=== PATIENT | male | born 1960 | race Caucasian/White ===

== ENCOUNTER 2017-03-04 06:49 | Day surgery (SDC) | payer MEDICAID ==
[~2017-03-04] VITALS: Ht 175.3 cm; Wt 107.7 kg
[2017-03-04 07:27] LABS: BASOPHILS 0.8 % (0-2); EOSINOPHILS 5.6 % (0-7); HEMATOCRIT 46.3 % (42.0-54.0); HEMOGLOBIN 16.1 g/dL (13.5-17.5); IMMATURE GRANULOCYTES 0.3 % (0-5); LYMPHOCYTES 29.7 % (15-50); MCH 33.1 pg (26.0-34.0); MCHC 34.8 g/dL (31.0-37.0); MCV 95.1 fL (80.0-100.0); MEAN PLATELET VOLUME 10.2 fL (7.4-10.4); MONOCYTES 7.8 % (2-11); NEUTROPHILS 55.8 % (40-80); PLATELET COUNT 226 10x3/uL (130-400); RBC 4.87 10x6/uL (4.20-6.10); RDW 13.1 % (11.5-14.5); WBC 7.3 10x3/uL (4.8-10.8)
[2017-03-04 07:43] LABS: CALCIUM 9.1 mg/dL (8.5-10.1); CARBON DIOXIDE 20.8 mmol/L (21.0-32.0); CREATININE - SERUM 1.2 mg/dL (0.6-1.3); POTASSIUM - SERUM 3.8 mmol/L (3.5-5.1)
[2017-03-04 09:31] VITALS: BP 114/78; Ht 175.3 cm; Wt 107.7 kg
[2017-03-04] MEDS ORDERED: GLUCOPHAGE500 MG PO (09:43)
[2017-03-04] MEDS ORDERED: NORVASC10 MG PO (09:44)
[2017-03-04] MEDS ORDERED: PRINIVIL10 MG PO (09:45)
[2017-03-04] MEDS ORDERED: KLONOPIN1 MG PO (09:46)
[2017-03-04] MEDS ORDERED: NIASPAN1000 MG PO (09:48)
[2017-03-04] MEDS ORDERED: FENOGLIDE40 MG PO (09:49)
--- NOTE | 2017-03-04 11:26 | NUR ---
1110-RECD TO ROOM FROM GI LAB. ALERT/ORIENTED. RESP WITH EASE. DENIES PAIN. UP TO BATHROOM. VOIDED AND PASSING GAS.
--- NOTE | 2017-03-04 11:55 | NUR ---
DISCHARGED HOME VIA WHEELCHAIR TO PRIVATE VEHICLE WITH SPOUSE
--- NOTE | 2017-03-05 08:15 | OP ---
PATIENT NAME: MOLINA ELLSWORTH MEDICAL RECORD: [id number] :60 LOCATION:D.OPS ADMISSION DATE: SURGEON: LUIS FERNANDO ASCENCIO MD DATE OF OPERATION: 03/04/2017 SURGEON: Luis Fernando Ascencio MD PREOPERATIVE DIAGNOSES: 1. Screening for malignant neoplasm of colon. 2. Type 2 diabetes. 3 Hyperlipidemia. 4. Reflux. 5. Nicotine dependence. POSTOPERATIVE DIAGNOSES: 1. Screening for malignant neoplasm of colon. 2. Type 2 diabetes. 3 Hyperlipidemia. 4. Reflux. 5. Nicotine dependence. PROCEDURE PERFORMED: Screening colonoscopy. ANESTHESIA: Total intravenous anesthesia. Case was contaminated. ESTIMATED BLOOD LOSS: Minimal. SPECIMENS: None. DESCRIPTION OF PROCEDURE: After consent was obtained, the patient was taken to the endoscopy suite at which time, a timeout was taken to confirm the correct patient and procedure, total intravenous anesthesia was provided. Next, a digital rectal exam was performed. Prior to that, the patient was placed in left lateral decubitus position. After the digital rectal exam, the scope was lubricated and was placed into the rectum. The rectum and colon were insufflated. The scope was advanced to the ileocecal valve. The appendiceal orifice was identified. The valve and orifice were pictured. Approximately 10 minutes was spent of withdrawing the scope. During that 10 minutes, the entirety of the colon was inspected. There was no evidence of diverticular disease. There was no evidence of bleeding. There were no masses identified. There were no polyps identified. The scope was retroflexed. There was some small internal hemorrhoids noted. The scope was then advanced back into the sigmoid and descending colon. The colon was desufflated as the scope was withdrawn. At the end of the case, all needle and instrument counts were correct. No complications occurred. The patient to have a repeat colonoscopy due to family risk factors and smoking in 5 years. TRANSINT:[id number] Voice Confirmation ID: [id number] DOCUMENT ID: [id number] OPERATIVE REPORT [id number] MOLINA ELLSWORTH LUIS FERNANDO MARC MD at 0815 CC: [id number] DICTATION DATE: 03/04/17 1101 LAUNDRY TECH: 03/04/[address] [facility] 03/04/17 [place] [address]
== END 2017-03-04 11:55 | disposition home or self-care (01) ==
LOC: D.OPS 06:49
PROVIDERS: Anesthesiology
DX: Z12.11 Encounter for screening for malignant neoplasm of colon (principal); F17.200 Nicotine dependence, unspecified, uncomplicated; K21.9 Gastro-esophageal reflux disease without esophagitis; E11.22 Type 2 diabetes mellitus with diabetic chronic kidney disease; I12.9 Hypertensive chronic kidney disease with stage 1 through stage 4 chronic kidney disease, or unspecified chronic kidney disease; N18.3 Chronic kidney disease, stage 3 (moderate)

== ENCOUNTER 2017-03-04 16:26 | Emergency (ER) | payer MEDICAID ==
[2017-03-04 09:31] VITALS: BMI 35.0
[~2017-03-04 16:26] MED LIST: FENOGLIDE40 MG PO; GLUCOPHAGE500 MG PO; KLONOPIN1 MG PO; NIASPAN1000 MG PO; NORVASC10 MG PO; PRINIVIL10 MG PO
[2017-03-04 17:49] LABS: BASOPHILS 0.5 % (0-2); EOSINOPHILS 3.2 % (0-7); HEMATOCRIT 45.3 % (42.0-54.0); HEMOGLOBIN 15.6 g/dL (13.5-17.5); IMMATURE GRANULOCYTES 0.1 % (0-5); LYMPHOCYTES 18.6 % (15-50); MCH 32.7 pg (26.0-34.0); MCHC 34.4 g/dL (31.0-37.0); MEAN PLATELET VOLUME 10.4 fL (7.4-10.4); MONOCYTES 7.7 % (2-11); NEUTROPHILS 69.9 % (40-80); PLATELET COUNT 247 10x3/uL (130-400); RBC 4.77 10x6/uL (4.20-6.10); RDW 13.2 % (11.5-14.5)
[2017-03-04 18:02] LABS: WBC 9.6 10x3/uL (4.8-10.8)
[2017-03-04 18:27] LABS: ANION GAP 16.8 mmol/L (8-16); BILIRUBIN - TOTAL 0.4 mg/dL (0.2-1.3); CALCIUM 9.3 mg/dL (8.5-10.1); CARBON DIOXIDE 22.5 mmol/L (21.0-32.0); POTASSIUM - SERUM 4.3 mmol/L (3.5-5.1); PROTEIN - SERUM 8.1 g/dL (6.4-8.2)
[2017-03-04 18:31] LABS: CREATININE - SERUM 1.6 mg/dL (0.6-1.3)
[2017-03-04 18:55] LABS: APPEARANCE CLEAR (CLEAR); BILIRUBIN NEGATIVE (NEGATIVE); COLOR YELLOW (YELLOW); GLUCOSE NEGATIVE (NEGATIVE); KETONE NEGATIVE (NEGATIVE); LEUKOCYTE ESTERASE NEGATIVE (NEGATIVE); NITRITE NEGATIVE (NEGATIVE); PROTEIN NEGATIVE (NEGATIVE); SPECIFIC GRAVITY 1.025 (1.005-1.020); UROBILINOGEN NORMAL (NORMAL)
[2017-03-04 18:56] LABS: BACTERIA FEW /hpf (NONE SEEN); RED CELLS - URINE 0-5 /hpf (0-5); WHITE CELLS - URINE OCC /hpf (0-5)
== END 2017-03-04 21:37 | disposition home or self-care (01) ==
LOC: D.ER 16:26
PROVIDERS: Emergency Medicine
DX: G89.18 Other acute postprocedural pain (principal); R10.9 Unspecified abdominal pain; I10 Essential (primary) hypertension; E11.9 Type 2 diabetes mellitus without complications; F41.9 Anxiety disorder, unspecified; E78.1 Pure hyperglyceridemia; F17.200 Nicotine dependence, unspecified, uncomplicated

== ENCOUNTER → 2017-03-07 16:50 | Outpatient (CLI) | payer MEDICAID ==
[2017-03-04 09:31] VITALS: BMI 35.0
== END | disposition home or self-care (01) ==
LOC: D.CT 16:50
DX: M54.08 Panniculitis affecting regions of neck and back, sacral and sacrococcygeal region (principal)

== ENCOUNTER → 2018-06-26 12:56 | Outpatient (CLI) | payer MEDICAID | END | disposition home or self-care (01) | LOC: D.MRI 12:56 | DX: M76.72 Peroneal tendinitis, left leg (principal) ==

== ENCOUNTER → 2019-05-18 10:37 | Outpatient (CLI) | payer MEDICAID ==
[~2019-05-18 10:37] MED LIST changes: +COZAAR100 MG PO; +CRESTOR10 MG PO; +FLOMAX0.4 MG PO; +HYDROCODON-ACE1 EAC7 PO; +JANUVIA100 MG PO
--- NOTE | 2019-05-22 16:51 | ST ---
PATIENT:MOLINA ELLSWORTH MEDICAL RECORD: [id number] SEX: M LOCATION:D.MRI ORDER #: ADMISSION DATE: 05/18/19 AGE OF PATIENT: 59 REFERRING PHYSICIAN: INTERPRETING PHYSICIAN: GIRMA WYLIE MD DATE OF SERVICE: 05/19/2019 INDICATIONS: Angina, hypertension, hyperlipidemia, and diabetes. PROCEDURE IN DETAIL: He was exercised on a standard Lexiscan protocol with 27 mCi of sestamibi injected at peak stress, 9 mCi used previously for rest images. FINDINGS: Gated SPECT reveals preserved ejection fraction at 69% with decreased thickening and brightening throughout the inferior segments. SPECT Imaging: Cardiolite was used as myocardial perfusion agent. There is fixed perfusion defect inferiorly. This includes the basal, mid apical, and inferior segments. There is no evidence of reversible ischemia. The remaining segments with homogeneous uptake at rest and stress. OVERALL IMPRESSION: 1. This is minimally abnormal nuclear stress test with a fixed perfusion defect inferiorly. 2. No ongoing ischemia and preserved ejection fraction greater than 50%. Continue medical management of the coronary artery disease and cardiac risk factors. TRANSINT:[id number] Voice Confirmation ID: [id number] DOCUMENT ID: [id number] GIRMA WYLIE MD at 1651 CC: BARRETT BUSTOS MD [id number] DICTATION DATE: 05/19/19 1617 APPLICATION ARCHITECT MANAGER: 05/20/19 0021 DEP CLI 05/18/19 [facility] [address] [place] [address]
== END | disposition home or self-care (01) ==
LOC: D.MRI 10:37
PROVIDERS: ATTEND Clinical Nurse Specialist Family Health
DX: M54.16 Radiculopathy, lumbar region (principal)

== ENCOUNTER 2019-05-22 14:55 | Emergency (ER) | payer MEDICAID ==
[~2019-05-22] VITALS: Ht 175.3 cm; Wt 111.4 kg
[~2019-05-22 14:55] MED LIST changes: -COZAAR100 MG PO; -CRESTOR10 MG PO; -FLOMAX0.4 MG PO; -HYDROCODON-ACE1 EAC7 PO; -JANUVIA100 MG PO
[2019-05-22 15:01] VITALS: Ht 175.3 cm; Wt 111.4 kg
[2019-05-22] MEDS ORDERED: COZAAR100 MG PO (15:03)
[2019-05-22] MEDS ORDERED: JANUVIA100 MG PO (15:04)
[2019-05-22] MEDS ORDERED: CRESTOR10 MG PO (15:05)
[2019-05-22 15:31] LABS: BASOPHILS 0.3 % (0-2); EOSINOPHILS 3.2 % (0-7); HEMATOCRIT 43.3 % (42.0-54.0); HEMOGLOBIN 15.3 g/dL (13.5-17.5); IMMATURE GRANULOCYTES 0.1 % (0-5); LYMPHOCYTES 18.9 % (15-50); MCH 32.8 pg (26.0-34.0); MCHC 35.3 g/dL (31.0-37.0); MCV 92.7 fL (80.0-100.0); MEAN PLATELET VOLUME 9.7 fL (7.4-10.4); MONOCYTES 11.7 % (2-11); NEUTROPHILS 65.8 % (40-80); PLATELET COUNT 245 10x3/uL (130-400); RBC 4.67 10x6/uL (4.20-6.10); RDW 13.3 % (11.5-14.5); WBC 11.1 10x3/uL (4.8-10.8)
[2019-05-22 15:42] LABS: APPEARANCE HAZY (CLEAR); BILIRUBIN NEGATIVE (NEGATIVE); COLOR RED (YELLOW); GLUCOSE NEGATIVE (NEGATIVE); KETONE NEGATIVE (NEGATIVE); NITRITE NEGATIVE (NEGATIVE); PROTEIN TRACE mg/dL (NEGATIVE); UROBILINOGEN NORMAL (NORMAL)
[2019-05-22 15:43] LABS: RED CELLS - URINE >50 /hpf (0-5); WHITE CELLS - URINE OCC /hpf (0-5)
[2019-05-22 15:44] LABS: BACTERIA FEW /hpf (NONE SEEN)
[2019-05-22 15:47] LABS: ALBUMIN 3.9 g/dL (3.4-5.0); ALKALINE PHOSPHATASE 56 U/L (46-116); ALT (SGPT) 34 U/L (10-68); BILIRUBIN - TOTAL 0.31 mg/dL (0.2-1.3); CALC OSMOLALITY 276 mosm/kg (275-300); CALCIUM 9.2 mg/dL (8.5-10.1); CARBON DIOXIDE 23.3 mmol/L (21.0-32.0); CHLORIDE - SERUM 105 mmol/L (98-107); CREATININE - SERUM 1.5 mg/dL (0.6-1.3); GLUCOSE 116 mg/dL (74-106); POTASSIUM - SERUM 4.4 mmol/L (3.5-5.1); PROTEIN - SERUM 8.5 g/dL (6.4-8.2); SODIUM 137 mmol/L (136-145); UREA NITROGEN 19 mg/dL (7-18); eGFR NON AFRICAN AMERICAN 51 mL/min (90-120)
[2019-05-22 15:50] LABS: AMYLASE - SERUM 37 U/L (25-115); LIPASE 132 U/L (73-393)
[2019-05-22 15:51] LABS: TROPONIN-I < 0.017 ng/mL (0.000-0.060)
[2019-05-22] MEDS ORDERED: HYDROCODON-ACE1 EAC7 PO (18:04)
[2019-05-22] MEDS ORDERED: FLOMAX0.4 MG PO (18:04)
[2019-05-22 18:09] VITALS: BP 136/86
== END 2019-05-22 18:10 | disposition home or self-care (01) ==
LOC: D.ER 14:55
PROVIDERS: Family Medicine
DX: N20.0 Calculus of kidney (principal)